=== PATIENT | male | born 1990 | race Caucasian/White ===

== ENCOUNTER → 2018-01-22 | Outpatient (CLI) | payer OTHER, SELFPAY ==
[2018-01-22 15:59] LABS: Absolute Lymphocyte Count 0.52 X10^3/ul (0.83-4.51); Absolute Neutrophil Count 3.8 X10^3/uL (2.0-7.7); Basophil# 0.03 X10^3/uL; Basophil% 0.6 % (0-1); Eosinophil# 0.11 X10^3/uL; Eosinophils% 2.1 % (0-5); Hematocrit 43.1 % (40-54); Hemoglobin 15.1 g/dl (13.0-16.5); Lymphocyte # 0.52 X10^3/ul (4.0); Lymphocyte % 10.1 % (19-41); Mean Corpuscular Hgb 32.4 pg (27.0-32.0); Mean Corpuscular Volume 92.5 fL (80-94); Mean Platelet Vol. 9.4 fl (6.2-12.0); Monocyte# 0.71 X10^3/uL; Monocyte% 13.8 % (0-10); Neutrophil # 3.78 X10^3/uL (2.7-7.7); Neutrophil % 73.2 % (47-70); Platelet Count 281 K/mm3 (150-450); RBC Distribution Width CV 11.9 % (11.6-14.6); RBC Distribution Width SD 39.4 fl (35.1-43.9); Red Blood Count 4.66 M/mm3 (4.6-6.2); White Blood Count 5.2 K/mm3 (4.4-11.0)
[2018-01-22 16:00] LABS: Differential Indicated SCAN CRITERIA MET; POSITIVE COUNT NO; POSITIVE DIFFERENTIAL YES; POSITIVE MORPHOLOGY NO
[2018-01-22 16:19] LABS: Differential Comment SCANNED
[2018-01-22 16:23] LABS: ALB/GLOB Ratio 1.1 RATIO (0.9-2.4); AST(SGOT) 26 U/L (15-37); Alanine Aminotransfer ALT/SGPT 42 U/L (16-61); Albumin, Serum 3.9 g/dL (3.2-5.0); Alkaline Phosphatase 47 U/L (45-117); Anion Gap 12 (5-15); BUN 7 mg/dL (7-18); BUN/Creat Ratio 7.9 RATIO (10-20); Calcium,Total 9.5 mg/dL (8.5-10.1); Chloride 105 mmol/L (98-107); Creatinine, Serum 0.89 mg/dL (0.70-1.30); EST Glomerular Filtration Rate 108 mL/min (>60); Est Glom Filt Rate - Afr Amer 131 mL/min (>60); Globulin 3.7 g/dL (2.2-4.2); Glucose 91 mg/dL (74-106); Protein, Total 7.6 g/dL (6.4-8.2); Sodium Level 142 mmol/L (136-145)
== END | disposition home or self-care (01) ==
LOC: MFPLAB 14:12
PROVIDERS: Family Provider Family Medicine; PCP Family Medicine; Visit Provider Family Medicine
DX: F41.8 Other specified anxiety disorders (principal); Z72.0 Tobacco use
CPT/HCPCS: 36415; 80053; 84443; 85025

== ENCOUNTER 2024-05-07 06:22 | Emergency (ER) | payer OTHER, SELFPAY ==
[2024-05-07 06:23] VITALS: BP 116/77; PULSE 77; RESP 18; TEMP 36.6; O2SAT 100; BMI 23.6
--- NOTE | 2024-05-07 06:30 | EKG12_ITS ---
Test Reason : Blood Pressure : / mmHG Vent. Rate : 064 BPM Atrial Rate : 064 BPM P-R Int : 172 ms QRS Dur : 094 ms QT Int : 426 ms P-R-T Axes : 059 088 040 degrees QTc Int : 439 ms Normal sinus rhythm with sinus arrhythmia Normal ECG Confirmed by Yfn Castillo ([id number]), editor managing director FRAN PICKERING ([id number]) on 05/09/2024 7:39:31 AM Referred By: Confirmed By:Yfn Castillo
--- NOTE | 2024-05-07 06:30 | CT_ITS ---
EXAM: CT HEAD WITHOUT INTRAVENOUS CONTRAST CLINICAL INDICATION: seizure, head injury TECHNIQUE: Multiple axial images were obtained of the head without intravenous contrast. This CT exam was performed using one or more of the following dose reduction techniques: automated exposure control, adjustment of the mA and/or kV according to patient size, and/or use of iterative reconstruction technique. RADIATION DOSE: CTDIvol = 44.99 mGy, DLP = 815.79 mGy-cm COMPARISON: No relevant prior studies available. FINDINGS: BRAIN AND EXTRA-AXIAL SPACES: Unremarkable. No intra- or extra-axial hemorrhage. No evidence of acute infarct. No intracranial mass or mass effect. There is preservation of the hung/white matter interface. Posterior fossa structures are unremarkable. Ventricles are appropriate for age. No hydrocephalus. Basal cisterns are patent. BONES/JOINTS: Unremarkable. No discrete lytic or blastic abnormalities. SINUSES: Unremarkable as visualized. Clear. MASTOID AIR CELLS: Unremarkable. Clear. ORBITS: Visualized globes, extraocular muscles, optic nerves and retrobulbar fat appear unremarkable. CT/Brain/Head without Contrast IMPRESSION: Negative head/brain CT without intravenous contrast. Electronically Signed: Antelmo Izaguirre MD at 7:08 EDT ,
[2024-05-07] MEDS: 0.9% Normal Saline (1000mL) 1,000 ML 150 ML IV (06:39)
[2024-05-07] MEDS: LORazepam 2 MG/ML Syringe 0.5 MG IV (06:40)
[2024-05-07] MEDS: Ondansetron 4 MG/2 ML Vial IV (06:40)
--- NOTE | 2024-05-07 06:42 | EDS_ITS ---
HPI <Dr. Coby Rivera MD - Last Filed: 05/07/24 07:04> History of Present Illness Chief Complaint: Seizure Informant: patient and spouse/S.O. Onset/Context/Timing Onset: Today Narrative Narrative: Patient presents with significant other after having a seizure this morning. Patient does not remember the event. Significant other states that he fell off the bed with seizure-like activity and struck the left side of his head against the nightstand. He did have what sounds like a postictal period. He did not bite his tongue or lose bladder control. Patient was initially very confused and did not know who his girlfriend or mother were. He tells me now that remembers going to work yesterday but he does not remember anything from last evening or overnight. Patient denies any history of seizures. He denies any new medications. He has been on sertraline clean for quite some time. He did take some NyQuil like medicine yesterday for cold-like symptoms. He denies drug or alcohol use. He is complaining of a headache and has been vomiting. [facility] <Dr. Coby Rivera MD - Last Filed: 05/07/24 07:04> [facility] Medical History (Updated 05/07/24 @ 07:[address] Lizandro Cantu MD) Anxiety Home Medications ?Medication ?Instructions ?Recorded ?Last Taken ?Type sertraline 100 mg tablet 150 mg PO DAILY 05/07/24 Unknown History Allergy/AdvReac Type Severity Reaction Status Date / Time amoxicillin Allergy Mild hives Verified 05/07/24 06:26 Social History Smoking Status: Current every day smoker tobacco type: e-cigarettes ROS <Dr. Coby Rivera MD - Last Filed: 05/07/24 07:04> ROS ED Constitutional Constitutional ED: Denies chills or fever(s) Eyes Eyes: Denies discharge from eye(s) ENT ENT ED: Denies discharge from eye(s), rhinorrhea or sore throat Cardiovascular Cardiovascular: Denies chest pain or palpitations Respiratory/Chest Respiratory/Chest: Denies cough or dyspnea Gastrointestinal Gastrointestinal: Reports nausea and vomiting; Denies abdominal pain or diarrhea Genitourinary Genitourinary ED: Denies dysuria Musculoskeletal Musculoskeletal: Denies back pain or extremity pain Integumentary Reports Abrasions; Denies rash Neurologic Neurologic: Reports headache(s); Denies weakness Psychiatric Psychiatric: Denies anxiety or depression Allergic/Immunologic Allergic/Immunologic ED: Denies lip swelling or urticaria EXAM <Dr. Coby Rivera MD - Last Filed: 05/07/24 07:04> Physical Exam Const Vital Signs: 05/07/24 06:23 Temperature 97.9 F Temperature Source Temporal Pulse Rate 77 Respiratory Rate 18 Blood Pressure 116/77 Blood Pressure Mean 90 Pulse Ox 100 Oxygen Delivery Method Room Air Positive well nourished and well developed General Appearance ED: well developed HEENT Reports moist mucous membranes HEENT Narrative: Erythema from trauma noted to the lateral portion of the left upper eyelid. No lacerations appreciated. Eyes EOMs intact bilaterally Chest Wall inspection of chest normal and palpation of chest normal Resp normal respiratory effort and clear to auscultation bilaterally Cardio regular rate and regular rhythm GI non-tender Auscultation: hypoactive bowel sounds Palpation: soft Extremity normal to inspection Neuro oriented x3 Neuro Narrative: No focal neurologic deficit. Psych mental status grossly normal <Dr. Lizandro Cantu MD - Last Filed: 05/07/24 07:59> Physical Exam Const Vital Signs: 05/07/24 06:23 Temperature 97.9 F Temperature Source Temporal Pulse Rate 77 Respiratory Rate 18 Blood Pressure 116/77 Blood Pressure Mean 90 Pulse Ox 100 Oxygen Delivery Method Room Air MDM <Dr. Coby Rivera MD - Last Filed: 05/07/24 07:04> MDM MDM Narrative Medical decision making narrative: Patient placed on finish machine tender. Patient given 0.5 mg of Ativan along with Zofran to help with nausea. Labwork obtained to evaluate for leukocytosis, anemia, and electrolyte derangement. EKG obtained to evaluate for cardiac arrhythmia/ischemia. CT scan of the head obtained to evaluate for any acute intracranial injury or mass. History & Record Review Discussion w/independent historian: Patient Lab Data Attestation: I reviewed the patient's lab results. Labs: Laboratory Results - last 24 hr 05/07/24 06:40 WBC 9.5 RBC 4.57 L Hgb 13.8 Hct 40.5 MCV 88.6 MCH 30.2 MCHC 34.1 RDW Std Deviation 40.4 RDW Coeff of Zach 12.5 Plt Count 188 MPV 9.2 Immature Gran % (Auto) 0.400 Neut % (Auto) 77.1 H Lymph % (Auto) 12.0 L [place] % (Auto) 5.2 Eos % (Auto) 4.7 Baso % (Auto) 0.6 Absolute Neuts (auto) 7.3 Absolute Lymphs (auto) 1.14 Nucleated RBC % 0 Sodium 140 Potassium 3.7 Chloride 108 H Carbon Dioxide 23.0 Anion Gap 9 BUN 14 Creatinine 1.19 Estim Creat Clear Calc 81.78 Est GFR (MDRD) Af Amer 90 Est GFR (MDRD) Non-Af 74 BUN/Creatinine Ratio 11.8 Glucose 205 H Calcium 9.4 Total Bilirubin 0.50 Direct Bilirubin 0.15 AST 17 ALT 29 Alkaline Phosphatase 47 Total Protein 7.8 Albumin 4.0 Globulin 3.8 Radiography Diagnostic Testing: Clinical Impression(s) from Imaging Studies Brain CT 05/07/24 06:30 IMPRESSION: Negative head/brain CT without intravenous contrast. Electronically Signed: Antelmo Izaguirre MD at 7:08 EDT , Treatment and Re-Evaluation :: Patient has been medicated. CBC has returned and is unremarkable. CT scan of the head per my interpretation reveals no obvious gross abnormalities. Official read is pending at this time. Patient be signed out to oncoming physician for monitoring, formal CT read, and the remainder of the labs. I anticipate patient able to be discharged with outpatient neurology follow-up. <Dr. Lizandro Cantu MD - Last Filed: 05/07/24 07:59> [facility] Lab Data Lab results narrative: CBC is normal. Electrolyte is remarkable for glucose of 205. CO2 and anion gap are normal. Liver enzymes are unremarkable. Patient does have a prior history of heavy alcohol use. Not had alcoholic beverage in 2 years. Labs: Laboratory Results - last 24 hr 05/07/24 06:40 WBC 9.5 RBC 4.57 L Hgb 13.8 Hct 40.5 MCV 88.6 MCH 30.2 MCHC 34.1 RDW Std Deviation 40.4 RDW Coeff of Zach 12.5 Plt Count 188 MPV 9.2 Immature Gran % (Auto) 0.400 Neut % (Auto) 77.1 H Lymph % (Auto) 12.0 L [place] % (Auto) 5.2 Eos % (Auto) 4.7 Baso % (Auto) 0.6 Absolute Neuts (auto) 7.3 Absolute Lymphs (auto) 1.14 Nucleated RBC % 0 Sodium 140 Potassium 3.7 Chloride 108 H Carbon Dioxide 23.0 Anion Gap 9 BUN 14 Creatinine 1.19 Estim Creat Clear Calc 81.78 Est GFR (MDRD) Af Amer 90 Est GFR (MDRD) Non-Af 74 BUN/Creatinine Ratio 11.8 Glucose 205 H Calcium 9.4 Total Bilirubin 0.50 Direct Bilirubin 0.15 AST 17 ALT 29 Alkaline Phosphatase 47 Total Protein 7.8 Albumin 4.0 Globulin 3.8 Radiography Diagnostic Testing: Clinical Impression(s) from Imaging Studies Brain CT 05/07/24 06:30 IMPRESSION: Negative head/brain CT without intravenous contrast. Electronically Signed: Antelmo Izaguirre MD at 7:08 EDT , The CT results were reviewed. I did independently review the CAT scan and I did not see any obvious intracranial abnormality or skull fracture. Treatment and Re-Evaluation Comments:: Case was turned over to me at 0701 to make disposition once all laboratory studies and CAT scan results were available. Patient and family were made aware of elevated blood sugar and need to follow-up with Dr. Hammond. He was referred to neurology for outpatient workup. He was told specific no driving, no use of machinery, no heights, no swimming in white, pond pool etc. No doing work at heights. Discharge Plan Triage Chief Complaint: Seizure ED Provider: Coby Rivera Dx/Rx/DC Orders Clinical Impression: New onset seizure, Nondiabetic hyperglycemia, History of alcoholism Instructions: ED Seizure New [facility] Adult, ED Hyperglycemia New Poss Diabetes Prescriptions: No Action sertraline 100 mg tablet 150 mg PO DAILY Primary Care Provider: Jesus uClver Referrals: Leroy Simon MD [Non-Staff -Ordering Privileges] - 5-7 Days Jesus Culver MD [[facility]] - 1 Week Activity Restrictions/Additional Instructions: No driving, no use motorized machinery, no working at heights, no swimming in white, pond pool etc., no driving either until cleared by neurology You need to follow-up with Dr. Sher because your blood sugar was greater than 200. Print Language: Ukrainian Disposition Disposition: Home, Self Care
[2024-05-07 06:50] LABS: Absolute Lymphocyte Count 1.14 X10^3/uL (0.83-4.51); Absolute Neutrophil Count 7.3 X10^3/uL (2.0-7.7); Basophil# 0.06 X10^3/uL; Basophil% 0.6 % (0-1); Eosinophil# 0.45 X10^3/uL; Eosinophils% 4.7 % (0-5); Hematocrit 40.5 % (40-54); Hemoglobin 13.8 g/dL (13.0-16.5); Lymphocyte # 1.14 X10^3/ul (0.83-4.51); Mean Corp Hgb Conc 34.1 g/dL (32-36); Mean Corpuscular Hgb 30.2 pg (27.0-32.0); Mean Corpuscular Volume 88.6 fL (80-94); Mean Platelet Vol. 9.2 fl (6.2-12.0); Monocyte# 0.49 X10^3/uL; Monocyte% 5.2 % (0-10); NRBC Flagged by Analyzer 0 % (0-5); Neutrophil # 7.32 X10^3/uL (2.7-7.7); Neutrophil % 77.1 % (47-70); Platelet Count 188 K/mm3 (150-450); RBC Distribution Width CV 12.5 % (11.6-14.6); RBC Distribution Width SD 40.4 fl (35.1-43.9); Red Blood Count 4.57 M/mm3 (4.6-6.2); White Blood Count 9.5 K/mm3 (4.4-11.0)
[2024-05-07 07:06] LABS: AST(SGOT) 17 U/L (15-37); Alanine Aminotransfer ALT/SGPT 29 U/L (16-61); Alkaline Phosphatase 47 U/L (45-117); Anion Gap 9 (5-15); BUN 14 mg/dL (7-18); BUN/Creat Ratio 11.8 RATIO (10-20); Bilirubin, Direct 0.15 mg/dL (0.00-0.30); Calcium,Total 9.4 mg/dL (8.5-10.1); Chloride 108 mmol/L (98-107); Creatinine, Serum 1.19 mg/dL (0.70-1.30); EST Glomerular Filtration Rate 74 mL/min (>60); Est Glom Filt Rate - Afr Amer 90 mL/min (>60); Estimated Creatinine Clearance 81.78 ml/min; Globulin 3.8 g/dL (2.2-4.2); Glucose 205 mg/dL (74-106); Potassium 3.7 mmol/L (3.5-5.1); Protein, Total 7.8 g/dL (6.4-8.2); Sodium Level 140 mmol/L (136-145)
[2024-05-07 08:24] VITALS: BP 111/70; PULSE 75; RESP 21; TEMP 36.6; O2SAT 95
== END 2024-05-07 08:27 | disposition home or self-care (01) ==
PROVIDERS: Emergency Provider Emergency Medicine; PCP Family Medicine; Visit Provider Emergency Medicine
DX: R56.9 Unspecified convulsions (principal); F10.21 Alcohol dependence, in remission; R73.9 Hyperglycemia, unspecified; S00.202A Unspecified superficial injury of left eyelid and periocular area, initial encounter; W06.XXXA Fall from bed, initial encounter; R41.0 Disorientation, unspecified; R51.9 Headache, unspecified; R11.2 Nausea with vomiting, unspecified; F17.290 Nicotine dependence, other tobacco product, uncomplicated
CPT/HCPCS: 70450; 80048; 80076; 85025; 93005; 99283; J2405

== ENCOUNTER → 2024-05-08 | Outpatient (CLI) | payer OTHER, SELFPAY ==
[2024-05-08 15:44] LABS: AST(SGOT) 24 U/L (15-37); Alanine Aminotransfer ALT/SGPT 31 U/L (16-61); Albumin, Serum 3.8 g/dL (3.2-5.0); Alkaline Phosphatase 39 U/L (45-117); Anion Gap 9 (5-15); BUN 19 mg/dL (7-18); BUN/Creat Ratio 19.5 RATIO (10-20); Calcium,Total 9.2 mg/dL (8.5-10.1); Chloride 108 mmol/L (98-107); Creatinine, Serum 0.98 mg/dL (0.70-1.30); EST Glomerular Filtration Rate 93 mL/min (>60); Est Glom Filt Rate - Afr Amer 113 mL/min (>60); Glucose 100 mg/dL (74-106); Potassium 3.8 mmol/L (3.5-5.1); Protein, Total 7.8 g/dL (6.4-8.2); Sodium Level 140 mmol/L (136-145)
[2024-05-08 15:50] LABS: Hemoglobin A1c 5.2 % (3.8-5.6)
== END | disposition home or self-care (01) ==
LOC: MFPLAB 11:44
PROVIDERS: PCP Family Medicine; Visit Provider Family Medicine
DX: R73.09 Other abnormal glucose (principal)
CPT/HCPCS: 36415; 80053; 83036

== ENCOUNTER → 2024-05-27 | Outpatient (CLI) | payer OTHER, SELFPAY ==
--- NOTE | 2024-05-27 08:09 | MRI_ITS ---
STUDY: MRI BRAIN WITH AND WITHOUT CONTRAST REASON FOR EXAM: Male, 33 years old. SEIZURE TECHNIQUE: Standardized multiplanar fat and water weighted pulse sequences were obtained. IV 14 cc clariscan was administered for the contrast portion of the examination. COMPARISON: None. FINDINGS: Normal size of the ventricles and extra-axial spaces for the patient''s age. Normal white matter tracts of the supratentorial brain. There is no evidence for recent intracranial ischemia or other cause of cytotoxic edema on diffusion weighted imaging (DWI). Normal T2* images of the brain without demonstrated susceptibility artifact. There is no demonstrated hemosiderin stain. Thin section coronal T2-weighted images through the temporal lobes demonstrate no evidence of hippocampal atrophy or hyperintensity to suggest mesial temporal sclerosis. Normal bilateral basal ganglia. Normal thalami. There is no extra-axial fluid accumulation. Normal flow voids within the major intracranial circulation suggesting patency by spin echo criteria. Normal venous enhancement. There is no enhancing intra-axial or extra-axial abnormality. Normal sella turcica, pituitary gland, infundibular stalk, optic chiasm and hypothalamus. Normal tectal plate and pineal gland. Normal midbrain, mckay and medulla. Normal cerebellum. Normal basal cisterns. Normal bilateral temporal bones. Normal bilateral internal auditory canals. No demonstrated orbital abnormality, within the constraints of a routine brain study. Normal visualized paranasal sinuses. Normal calvarium and skull base. Normal visualized soft tissue structures. Normal visualized upper cervical spine. MRI/Brain W/WO Contrast IMPRESSION: Normal unenhanced and enhanced MRI of the brain. Electronically Signed: Tenzin Leroy MD at 13:13 EDT ,
== END | disposition home or self-care (01) ==
LOC: MRI 08:00
PROVIDERS: PCP Family Medicine; Referring Provider Family Medicine; Visit Provider Family Medicine
DX: R56.9 Unspecified convulsions (principal)
CPT/HCPCS: 70553; A9575

== ENCOUNTER → 2024-06-05 | Outpatient (CLI) | payer OTHER, SELFPAY | END | disposition home or self-care (01) | PROVIDERS: PCP Family Medicine; Referring Provider Family Medicine; Visit Provider Family Medicine | DX: R56.9 Unspecified convulsions (principal) | CPT/HCPCS: 95819 ==

== ENCOUNTER 2024-06-21 11:19 | Emergency (ER) | payer OTHER, SELFPAY ==
[2024-06-21] VITALS (8 sets, daily range): BP systolic 90–103; BP diastolic 40–65; PULSE 51–78; RESP 14–18; TEMP 36.1–36.4; O2SAT 96–100; BMI 23.7
--- NOTE | 2024-06-21 11:40 | EX.ED.DYSGE1 ---
HPI <VIDA Sapp - Last Filed: 06/21/24 20:40> History of Present Illness Chief Complaint: Seizure Narrative Narrative: 33-year-old male with history of alcohol abuse, anxiety depression, presenting to the emerged department for shaking in his sleep, headaches. Patient states he has not had alcohol in greater than 2 years. Per the girlfriend who lives with him, the patient was having what she describes as convulsions, however the patient was alert and able to answer the girlfriend. Per the girlfriend, the patient had 3 of these episodes throughout the morning. Patient does smoke marijuana daily, however did not smoke anything this morning. Patient states he has pain to both of his lutheran areas, feels like pressure. He states he feels nauseated and is here for evaluation. PFS <VIDA Sapp - Last Filed: 06/21/24 20:40> [facility] Medical History Anxiety Home Medications ?Medication ?Instructions ?Recorded ?Last Taken ?Type sertraline 100 mg tablet 150 mg PO DAILY 05/07/24 Unknown History Allergy/AdvReac Type Severity Reaction Status Date / Time amoxicillin Allergy Mild hives Verified 06/21/24 11:23 Social History Smoking Status: Current every day smoker tobacco type: e-cigarettes ROS <VIDA Sapp - Last Filed: 06/21/24 20:40> ROS ED ROS Narrative Constitutional: Negative for fever, chills, weight loss, weakness. Positive for diaphoresis Eyes: Negative for vision loss, vision change, double vision ENT: Negative for any sore throat, ear pain, congestion Cardiovascular: Negative for any chest pain, tightness, palpitations Respiratory: Negative for any cough, sputum production, hemoptysis, dyspnea, dyspnea on exertion, orthopnea Gastrointestinal: Negative for any abdominal pain, diarrhea, constipation, blood in stool, blood in vomit. Positive for nausea and vomiting : Negative for any urinary frequency, dysuria, retention, blood in urine Muscle skeletal: Negative for any neck pain, back pain Neurological: Negative for any syncope, dizziness. Positive for headache, Skin: Negative for any rashes, itching, abrasions, lacerations Psychiatric: Negative for any depression, anxiety, stress, suicidal ideation, homicidal ideation Hematologic: Negative for any excessive bruising, easy bleeding EXAM <VIDA Sapp - Last Filed: 06/21/24 20:40> Physical Exam Narrative Exam Narrative: Vital signs reviewed. HEET: Head normocephalic atraumatic, TMs clear bilaterally. Posterior pharynx is clear, moist mucous membranes. Nares clear bilaterally. Pupils are equal round reactive to light. Negative for hemotympanum or septal hematoma. Neck: Supple with no lymphadenopathy or tenderness. No signs of meningismus. Cardiac: Regular rate and rhythm no murmurs gallops or rubs, equal peripheral pulses bilaterally. Respiratory: Lungs clear to auscultation bilaterally. No chest tenderness. Abdomen: Soft, nontender, nondistended. No abdominal bruit or pulsatile masses. No hepatosplenomegaly Extremities: No peripheral edema, no signs of gross trauma or deformity. Active full range of motion of all extremities. Neuro: Cranial nerves II through XII intact, no focal neurological deficits. NIH stroke scale 0. Skin: Clean dry and intact with no rash, purpura, petechiae, vesicles or pustules. Backs/flank: No CVA tenderness, no midline spinal tenderness, no deformity. Psych: Normal mood and affect. No SI, HI or acute psychosis. Const Vital Signs: 06/21/24 11:20 06/21/24 13:20 06/21/24 15:00 Temperature 97.0 F L Temperature Source Temporal Pulse Rate 55 L 73 Respiratory Rate 16 18 Blood Pressure 101/65 94/42 L 98/40 L Blood Pressure Mean 77 59 59 Pulse Ox 100 98 Oxygen Delivery Method Room Air 06/21/24 17:00 06/21/24 18:00 06/21/24 20:00 Temperature Temperature Source Pulse Rate 51 L 67 62 Respiratory Rate 18 14 16 Blood Pressure 90/44 L 103/54 L 101/49 L Blood Pressure Mean 59 70 66 Pulse Ox 97 98 Oxygen Delivery Method Room Air Room Air Room Air 06/21/24 20:07 Temperature 97.6 F L Temperature Source Pulse Rate 78 Respiratory Rate 16 Blood Pressure 96/50 L Blood Pressure Mean 65 Pulse Ox 96 Oxygen Delivery Method <Dr. Leroy Stacy DO - Last Filed: 06/21/24 16:33> Physical Exam Const Vital Signs: 06/21/24 11:20 06/21/24 13:20 06/21/24 15:00 Temperature 97.0 F L Temperature Source Temporal Pulse Rate 55 L 73 Respiratory Rate 16 18 Blood Pressure 101/65 94/42 L 98/40 L Blood Pressure Mean 77 59 59 Pulse Ox 100 98 Oxygen Delivery Method Room Air 06/21/24 17:00 06/21/24 18:00 06/21/24 20:00 Temperature Temperature Source Pulse Rate 51 L 67 62 Respiratory Rate 18 14 16 Blood Pressure 90/44 L 103/54 L 101/49 L Blood Pressure Mean 59 70 66 Pulse Ox 97 98 Oxygen Delivery Method Room Air Room Air Room Air 06/21/24 20:07 Temperature 97.6 F L Temperature Source Pulse Rate 78 Respiratory Rate 16 Blood Pressure 96/50 L Blood Pressure Mean 65 Pulse Ox 96 Oxygen Delivery Method [facility] <VIDA Sapp - Last Filed: 06/21/24 20:40> [facility] Lab Data Labs: Laboratory Results - last 24 hr 06/21/24 06/21/24 06/21/24 11:47 12:50 18:42 WBC 7.7 RBC 4.55 L Hgb 14.0 Hct 40.9 MCV 89.9 MCH 30.8 MCHC 34.2 RDW Std Deviation 41.1 RDW Coeff of Zach 12.5 Plt Count 195 MPV 9.0 Immature Gran % (Auto) 1.400 H Neut % (Auto) 84.8 H Lymph % (Auto) 6.6 L [place] % (Auto) 4.1 Eos % (Auto) 2.5 Baso % (Auto) 0.6 Absolute Neuts (auto) 6.5 Absolute Lymphs (auto) 0.51 L Nucleated RBC % 0 Sodium 143 Potassium 4.1 Chloride 111 H Carbon Dioxide 25.0 Anion Gap 7 BUN 19 H Creatinine 1.10 Estim Creat Clear Calc 88.47 Est GFR (MDRD) Af Amer 98 Est GFR (MDRD) Non-Af 81 BUN/Creatinine Ratio 17.3 Glucose 93 Calcium 9.3 Total Bilirubin 0.50 AST 20 ALT 29 Alkaline Phosphatase 41 L Total Protein 7.8 Albumin 4.0 Globulin 3.8 Albumin/Globulin Ratio 1.1 Urine Color Yellow Urine Clarity Sl. Cloudy Urine pH 6.0 Ur Specific [place] 1.020 Urine Protein 30 H Urine Glucose (UA) Normal Urine Ketones 15 H Urine Occult Blood Negative Urine Nitrite Negative Urine Bilirubin Negative Urine Urobilinogen Normal Ur Leukocyte Esterase Negative Urine RBC 0 SEEN Urine WBC 0 SEEN Ur Squamous Epith Cells 0 SEEN Amorphous Sediment 1+ Urine Bacteria 1+ Urine Mucus 1+ Urine Opiates Screen NEGATIVE Urine Methadone Screen NEGATIVE Ur Barbiturates Screen NEGATIVE Ur Phencyclidine Scrn NEGATIVE Ur Amphetamines Screen NEGATIVE MDMA (Ecstasy) Screen NEGATIVE U Benzodiazepines Scrn NEGATIVE Urine Cocaine Screen NEGATIVE U Cannabinoids Screen POSITIVE H Ur Drug Screen Comment Ethyl Alcohol < 3.0 Radiography Diagnostic Testing: Clinical Impression(s) from Imaging Studies Brain CT 06/21/24 12:04 IMPRESSION: No acute intracranial process. Electronically Signed: Petra Delcid MD at 13:36 EDT , Treatment and Re-Evaluation :: Differential diagnosis includes however is not limited to: Seizure activity, sleep disturbance, migraine headache, drug abuse Patient appears to be in no obvious respiratory distress, vital signs are stable, patient is nontoxic-appearing. Presenting to the emerged part with complaints of headache, convulsions x 3 while he was in his sleep. I do not believe this was a seizure secondary to the patient being alert and answering questions while this was happening this morning. I am getting the information from the girlfriend who witnessed this. Patient this time has a normal neurological exam. Patient did have a full neurological exam in April 2024 for similar issues. This was negative, the patient was cleared for driving. Patient dates complains of headache and nausea. Patient will be given a migraine-like cocktail, secondary to a normal neurological exam, do not believe that CT scan is indicated at this time. Patient will be given Reglan, Toradol, Benadryl. IV fluids will be given. Patient will be reevaluated. We were called into the room, patient having a grand mal seizure, this lasted around 1 minute. Patient is having extended postictal state, he is fighting the nurses, patient was given originally 2 mg of Ativan, patient is now given 1 mg/kg of ketamine. Patient's moving all extremities, he was incontinent of bladder. CT scan of the brain will now be ordered secondary to the change in mental status and seizure. Per the girlfriend, the patient is never had a seizure like this. After the ketamine, patient is now resting. Patient's vital signs remained stable. Patient is no longer postictal. 2:15 PM, patient was reevaluated, patient does open his eyes to verbal stimuli however goes immediately back to sleep. Per the girlfriend, nursing staff patient has no more seizure like activity. Patient continue to be monitored. The question at this time is of the patient will be able to stay here to be transferred to another facility. Patient continued to be reevaluated. 3:56 PM, patient remained stable, patient is alert, he is still sleepy however wakes up and does talk. I spoke with the hospitalist, they would feel more comfortable the patient was transferred where they have neuro in house. I spoke with the patient, the patient's family, they are agreeable. The plan will be to transfer the patient to a [facility] facility. Patient remained stable. 7:30 PM, patient is alert, still slightly sleepy however overall well. Patient is drinking fluids. Patient now has a bed at [facility]. Patient be stable for transport. <Dr. Leroy Stacy, DO - Last Filed: 06/21/24 16:33> [facility] Narrative Medical decision making narrative: I have personally performed a face to face assessment of the patient and have reviewed the ANN MARIE Note. I performed a substantive portion of the visit including all aspects of the following. My burrell findings include: History: Patient presents with possible seizure that occurred earlier this morning. Patient significant other stated that he was having shaking episodes while he was sleeping. She stated that patient was talking during these seizures. She states that the patient had a generalized seizure 1 month ago and was seen by neurology for that. Patient was not started on any antiepileptics at that time. Exam: Vital signs are stable. Patient is afebrile. Patient is in no acute distress. On my examination, patient was actively having a generalized tonic-clonic seizure. This lasted approximately 1 minute. Patient was postictal after this. Oral mucosa is pink and moist. There is no biting of the tongue. There is no bleeding noted. Neck is supple. Trachea is midline. Heart was regular rate and rhythm. Lungs are clear and equal bilaterally. Abdomen is soft. Bowel sounds are normal. There is no tenderness. Patient is moving all extremities. Strength is 5/5 bilaterally in upper and lower extremities. There are no apparent sensory deficits. Medical Decision Making: Differential diagnosis includes intracranial bleeding, intracranial mass, electrolyte abnormality, infection, and anemia. CT scan of the brain will be obtained to assess for intracranial bleeding and intracranial mass. Comprehensive metabolic profile will be obtained to assess for hepatic function, renal function, and electrolyte abnormality. CT scan of the brain will be obtained to her report intracranial bleeding and intracranial mass Patient was given 1 mg of Ativan. Patient was given Reglan, Benadryl, and Toradol. Patient continued to be combative while he was postictal. Patient was given a repeat dose of Ativan. Patient had no improvement with this. Patient was given a dose of ketamine. CBC was reviewed and was within normal limits. Comprehensive metabolic profile was reviewed and was within normal limits. Serum alcohol level was reviewed and was less than 3.0. CT scan of the brain was obtained. There is no acute intracranial abnormality. This was interpreted by the radiologist and was also independently reviewed by myself. Patient was sleeping on reevaluation but awakened to tactile stimulation. Patient was advised of his findings. Case was discussed with the hospitalist for admission. He recommended transferring the patient to a facility that had inpatient neurology coverage. Lab Data Labs: Laboratory Results - last 24 hr 06/21/24 06/21/24 06/21/24 11:47 12:50 18:42 WBC 7.7 RBC 4.55 L Hgb 14.0 Hct 40.9 MCV 89.9 MCH 30.8 MCHC 34.2 RDW Std Deviation 41.1 RDW Coeff of Zach 12.5 Plt Count 195 MPV 9.0 Immature Gran % (Auto) 1.400 H Neut % (Auto) 84.8 H Lymph % (Auto) 6.6 L [place] % (Auto) 4.1 Eos % (Auto) 2.5 Baso % (Auto) 0.6 Absolute Neuts (auto) 6.5 Absolute Lymphs (auto) 0.51 L Nucleated RBC % 0 Sodium 143 Potassium 4.1 Chloride 111 H Carbon Dioxide 25.0 Anion Gap 7 BUN 19 H Creatinine 1.10 Estim Creat Clear Calc 88.47 Est GFR (MDRD) Af Amer 98 Est GFR (MDRD) Non-Af 81 BUN/Creatinine Ratio 17.3 Glucose 93 Calcium 9.3 Total Bilirubin 0.50 AST 20 ALT 29 Alkaline Phosphatase 41 L Total Protein 7.8 Albumin 4.0 Globulin 3.8 Albumin/Globulin Ratio 1.1 Urine Color Yellow Urine Clarity Sl. Cloudy Urine pH 6.0 Ur Specific [place] 1.020 Urine Protein 30 H Urine Glucose (UA) Normal Urine Ketones 15 H Urine Occult Blood Negative Urine Nitrite Negative Urine Bilirubin Negative Urine Urobilinogen Normal Ur Leukocyte Esterase Negative Urine RBC 0 SEEN Urine WBC 0 SEEN Ur Squamous Epith Cells 0 SEEN Amorphous Sediment 1+ Urine Bacteria 1+ Urine Mucus 1+ Urine Opiates Screen NEGATIVE Urine Methadone Screen NEGATIVE Ur Barbiturates Screen NEGATIVE Ur Phencyclidine Scrn NEGATIVE Ur Amphetamines Screen NEGATIVE MDMA (Ecstasy) Screen NEGATIVE U Benzodiazepines Scrn NEGATIVE Urine Cocaine Screen NEGATIVE U Cannabinoids Screen POSITIVE H Ur Drug Screen Comment Ethyl Alcohol < 3.0 Radiography Diagnostic Testing: Clinical Impression(s) from Imaging Studies Brain CT 06/21/24 12:04 IMPRESSION: No acute intracranial process. Electronically Signed: Petra Delcid MD at 13:36 EDT , Discharge Plan Triage Chief Complaint: Seizure ED Midlevel Provider: Rosas Ball ED Provider: Leroy Stacy Dx/Rx/DC Orders Instructions: ED Seizure, Recurrent (Adult) Prescriptions: No Action sertraline 100 mg tablet 150 mg PO DAILY Primary Care Provider: Jesus Culver Referrals: Jesus Culver MD [Primary Care Provider] - Print Language: Faroese Disposition Disposition: Acute Care Hospital Discharge Location: [facility]
[2024-06-21] MEDS: 0.9% Normal Saline (1000mL) 1,000 ML 999 ML IV ×2 (11:47→17:05)
[2024-06-21] MEDS: Ketorolac 15 MG/ML Vial IV (11:49)
[2024-06-21] MEDS: DiphenhydrAMINE 50 MG/ML Syringe 25 MG IV (11:49)
[2024-06-21] MEDS: Metoclopramide 10 MG/2 ML Vial IV (11:49)
[2024-06-21 11:57] LABS: Absolute Lymphocyte Count 0.51 X10^3/uL (0.83-4.51); Absolute Neutrophil Count 6.5 X10^3/uL (2.0-7.7); Basophil# 0.05 X10^3/uL; Basophil% 0.6 % (0-1); Eosinophil# 0.19 X10^3/uL; Eosinophils% 2.5 % (0-5); Hematocrit 40.9 % (40-54); Lymphocyte # 0.51 X10^3/ul (0.83-4.51); Lymphocyte % 6.6 % (19-41); Mean Corp Hgb Conc 34.2 g/dL (32-36); Mean Corpuscular Hgb 30.8 pg (27.0-32.0); Mean Corpuscular Volume 89.9 fL (80-94); Monocyte# 0.32 X10^3/uL; Monocyte% 4.1 % (0-10); NRBC Flagged by Analyzer 0 % (0-5); Neutrophil # 6.54 X10^3/uL (2.7-7.7); Neutrophil % 84.8 % (47-70); POSITIVE DIFFERENTIAL YES; Platelet Count 195 K/mm3 (150-450); RBC Distribution Width CV 12.5 % (11.6-14.6); RBC Distribution Width SD 41.1 fl (35.1-43.9); Red Blood Count 4.55 M/mm3 (4.6-6.2); White Blood Count 7.7 K/mm3 (4.4-11.0)
--- NOTE | 2024-06-21 12:04 | CT_ITS ---
INDICATION: seizure EXAMINATION: CT BRAIN - CT Head or Brain W/O Contrast Injection TECHNIQUE: Multiple axial images were obtained of the head without intravenous contrast. The protocol utilizes one or more of the following dose reduction techniques: automated exposure control, adjustment of mA and/or kV according to patient size,and/or use of iterative reconstruction technique. IV Contrast dosage and agent: None. RADIATION DOSAGE (If Supplied By Facility): CTDIvol = ( 44.99 ) mGy, DLP = ( 812.98 ) mGycm COMPARISON: May 07, 2024 FINDINGS: BRAIN PARENCHYMA: No intra- or extra-axial hemorrhage. No evidence of acute infarct. No intracranial mass or mass effect. There is preservation of the hung/white matter interface. Posterior fossa structures are unremarkable. CSF SPACES: Appropriate for age. No hydrocephalus. Basal cisterns are patent. CALVARIUM, SKULL BASE, PARANASAL SINUSES AND MASTOID AIR CELLS: Clear. No discrete lytic or blastic abnormalities. ORBITS: Both globes, extraocular muscles, optic nerves and retrobulbar fat appear unremarkable. ASPECTS Score for Acute Strokes: 10 CT/Brain/Head without Contrast IMPRESSION: No acute intracranial process. Electronically Signed: Petra Delcid MD at 13:36 EDT ,
[2024-06-21] MEDS: LORazepam 2 MG/ML Syringe 1 MG IV ×2 (12:06→12:27)
[2024-06-21 12:15] LABS: ALB/GLOB Ratio 1.1 RATIO (0.9-2.4); AST(SGOT) 20 U/L (15-37); Alanine Aminotransfer ALT/SGPT 29 U/L (16-61); Alkaline Phosphatase 41 U/L (45-117); Anion Gap 7 (5-15); BUN 19 mg/dL (7-18); BUN/Creat Ratio 17.3 RATIO (10-20); Calcium,Total 9.3 mg/dL (8.5-10.1); Chloride 111 mmol/L (98-107); EST Glomerular Filtration Rate 81 mL/min (>60); Est Glom Filt Rate - Afr Amer 98 mL/min (>60); Estimated Creatinine Clearance 88.47 ml/min; Globulin 3.8 g/dL (2.2-4.2); Glucose 93 mg/dL (74-106); Potassium 4.1 mmol/L (3.5-5.1); Protein, Total 7.8 g/dL (6.4-8.2); Sodium Level 143 mmol/L (136-145)
[2024-06-21] MEDS: Ketamine HCl 500 MG/5 ML Vial 66 MG IV (12:25)
[2024-06-21 13:33] LABS: Alcohol, Blood (Medical)-Serum < 3.0 mg/dL
[2024-06-21 18:50] LABS: Red Blood Cells-Urine 0 SEEN /hpf (0-5); Squamous Epithelial Cells - UA 0 SEEN /hpf (0-5); White Blood Cells 0 SEEN /hpf (0-5)
[2024-06-21 18:52] LABS: Color, Urine Yellow (Yellow); Glucose, Dipstick Normal (Normal); Ketone-Dipstick 15 mg/dl (Negative); Leukocyte Esterase-Dipstick Negative /ul (Negative); Nitrite-Dipstick Negative (Negative); Occult Blood-Urine Negative /ul (Negative); Protein-Dipstick 30 mg/dl (Negative); Urine Bilirubin Dipstick Negative (Negative); Urine Clarity Sl. Cloudy (Clear); Urine Urobilinogen Normal (Normal)
[2024-06-21 19:05] LABS: Amorphous Sediment 1+; Bacteria 1+ /hpf (None Seen); Mucous, Urine 1+ /hpf (<or=2+)
--- NOTE | 2024-06-21 19:12 | NURSING ---
ACCEPTED TO [facility] TO ROOM [address] IS [phone]
[2024-06-21 19:18] LABS: Amphetamine Urine VISTA NEGATIVE (<1000 ng/mL); Barbiturate Urine VISTA NEGATIVE (< 200 ng/mL); Benzodiazepine Urine VISTA NEGATIVE (< 200 ng/mL); Cocaine Urine VISTA NEGATIVE (< 300 ng/mL); Ecstacy Urine VISTA NEGATIVE (< 500 ng/mL); Methadone Urine VISTA NEGATIVE (< 300 ng/mL); PCP Urine VISTA NEGATIVE (< 25 ng/mL); THC Urine VISTA POSITIVE (< 50 ng/mL); Vista UDS pH Range 6
--- NOTE | 2024-06-21 21:37 | ED.RN ---
N2N report called to Hugh, to nurse Lalitha. All questions answered at this time.
== END 2024-06-21 22:58 | disposition short-term general hospital (02) ==
PROVIDERS: Nurse Practitioner; Emergency Provider Emergency Medicine; PCP Family Medicine; Visit Provider Emergency Medicine
DX: R56.9 Unspecified convulsions (principal); F17.290 Nicotine dependence, other tobacco product, uncomplicated; R51.9 Headache, unspecified; F41.9 Anxiety disorder, unspecified; F32.A Depression, unspecified; F10.10 Alcohol abuse, uncomplicated
CPT/HCPCS: 70450; 80053; 80307; 81001; 82077; 85025; 96361; 96374; 96375; 99285; J7030; A4216

== ENCOUNTER 2024-09-13 12:02 | Emergency (ER) | payer OTHER, SELFPAY ==
[2024-09-13 12:02] VITALS: BP 130/78; PULSE 85; RESP 26; TEMP 36.6; O2SAT 93; BMI 32.1
[2024-09-13 12:28] VITALS: BP 102/60; PULSE 79; RESP 19; O2SAT 95
--- NOTE | 2024-09-13 12:37 | EDS_ITS ---
HPI History of Present Illness Chief Complaint: Seizure Informant: patient and spouse/S.O. Narrative Narrative: 33-year-old male presented to the emergency room with reported seizures. Patient has a history of epilepsy. About 2 weeks ago he followed up with neur ology ([facility] Dr. Bairon Naylor). His Trileptal was increased to 600 mg twice daily from 450 mg twice daily. Significant other states that this morning at around 640 he began to have a seizure. He has had a total of 4 seizures. It is not clear if the patient achieved neurologic baseline in between the episodes as he typically sleeps the rest of the day. She states that she used the midazolam nasal spray that she was given to help terminate the seizure. She notes that the patient bit the right side of his tongue. Patient has been doing well over the past couple weeks. No reported illnesses. Patient is currently postictal and cannot provide much information or participate in the exam readily [facility] Medical History Seizure Anxiety Home Medications ?Medication ?Instructions ?Recorded ?Last Taken ?Type sertraline 100 mg tablet 150 mg PO DAILY 05/07/24 Unknown History midazolam 5 mg/spray (0.1 mL) intranasal 09/13/24 Unknown History nasal spray (Nayzilam) oxcarbazepine 300 mg tablet 600 mg PO BID 09/13/24 Unknown History Allergy/AdvReac Type Severity Reaction Status Date / Time amoxicillin Allergy Mild hives Verified 06/21/24 11:23 Social History Smoking Status: Current every day smoker tobacco type: e-cigarettes ROS ROS ED Review of Systems ROS Unobtainable: due to mental status EXAM Physical Exam Const Vital Signs: 09/13/24 12:02 09/13/24 12:28 09/13/24 13:02 Temperature 98 F Temperature Source Temporal Pulse Rate 85 79 Respiratory Rate 26 H 19 H 22 H Blood Pressure 130/78 H 102/60 100/60 Blood Pressure Mean 95 74 73 Pulse Ox 93 95 98 Oxygen Delivery Method Room Air Room Air Room Air 09/13/24 14:00 Temperature Temperature Source Pulse Rate 82 Respiratory Rate 14 Blood Pressure 97/60 Blood Pressure Mean 72 Pulse Ox 98 Oxygen Delivery Method Room Air Positive well nourished and well developed General Appearance ED: well developed and NAD HEENT Reports normocephalic, head/scalp atraumatic and moist mucous membranes HEENT Narrative: There are abrasions to the right side of the tongue. Eyes PERRL and EOMs intact bilaterally Neck no lymphadenopathy, supple and no JVD Resp normal respiratory effort and clear to auscultation bilaterally Cardio regular rate, regular rhythm and no murmurs GI normal to inspection, nondistended, normoactive bowel sounds and non-tender Palpation: soft Back/Spine no CVA tenderness and normal ROM Extremity normal to inspection General Extremety ED: Negative for edema General Extremity: Negative for edema Neuro Neuro Narrative: Patient moves all extremities. I can get him to open his eyes and stick out his tongue but only briefly. Psych mental status grossly normal Mood & Affect: Negative for depressed or tearful Skin no rashes or lesions noted and no wounds MDM MDM MDM Narrative Medical decision making narrative: Differential diagnosis includes but not limited to but not limited to epileptic seizure status epilepticus medication noncompliance Apparently after a left the room the patient began crying stating that his head hurt. We administered a dose of Toradol. White count is elevated at 24.1 hemoglobin 14.4 platelet count of 340. CO2 is 13 anion gap is 20 which could be consistent with seizure. Alcohol level is negligible glucose of 150. Seizure precautions were instituted. Patient will be observed. Urinalysis and urine drug screen are currently pending. He is a known cannabis user. We will continue observe/monitor the patient. Care of the patient will be turned over to the oncoming physician Dr. Flynn for final check of labs of final disposition. History & Record Review Discussion w/independent historian: Patient and Significant other Lab Data Attestation: I reviewed the patient's lab results. Labs: Laboratory Results - last 24 hr 09/13/24 09/13/24 12:05 14:10 WBC 24.1 H RBC 4.63 Hgb 14.4 Hct 42.3 MCV 91.4 MCH 31.1 MCHC 34.0 RDW Std Deviation 40.4 RDW Coeff of Zach 12.0 Plt Count 340 MPV 8.7 Immature Gran % (Auto) 0.900 Neut % (Auto) 79.6 H Lymph % (Auto) 13.4 L [place] % (Auto) 4.2 Eos % (Auto) 1.5 Baso % (Auto) 0.4 Absolute Neuts (auto) 19.1 H Absolute Lymphs (auto) 3.22 Nucleated RBC % 0 Sodium 133 L Potassium 3.3 L Chloride 100 Carbon Dioxide 13.0 L Anion Gap 20 H BUN 13 Creatinine 1.34 H Estim Creat Clear Calc 87.28 Est GFR (MDRD) Af Amer 78 Est GFR (MDRD) Non-Af 65 BUN/Creatinine Ratio 9.7 L Glucose 150 H Calcium 8.8 Total Bilirubin 0.40 Direct Bilirubin 0.12 AST 27 ALT 32 Alkaline Phosphatase 49 Total Protein 8.0 Albumin 4.4 Globulin 3.6 Ur Drug Screen Comment Ethyl Alcohol < 3.0 Discharge Plan Triage Chief Complaint: Seizure ED Provider: Rashaun Christianson Dx/Rx/DC Orders Prescriptions: No Action sertraline 100 mg tablet 150 mg PO DAILY oxcarbazepine 300 mg tablet 600 mg PO BID Nayzilam 5 mg/spray (0.1 mL) spray,non-aerosol INTRANASAL Patient Comments: INSTILL 1 SPRAY IN THE NOSE NEEDED FOR SEIZURES LASTING LONGER 3 MINUTES. MAY REPEAT DOSE IN ALTERNATE NOSTRIL AFTER 10 MINUTES BASED ON RESPONSE AND TOLERABILITY. Primary Care Provider: Jesus Culver Referrals: Jesus Culver MD [Primary Care Provider] - Print Language: Kiswahili
[2024-09-13 12:40] LABS: Absolute Lymphocyte Count 3.22 X10^3/uL (0.83-4.51); Absolute Neutrophil Count 19.1 X10^3/uL (2.0-7.7); Basophil% 0.4 % (0-1); Eosinophil# 0.37 X10^3/uL; Eosinophils% 1.5 % (0-5); Hematocrit 42.3 % (40-54); Hemoglobin 14.4 g/dL (13.0-16.5); Lymphocyte # 3.22 X10^3/ul (0.83-4.51); Lymphocyte % 13.4 % (19-41); Mean Corpuscular Hgb 31.1 pg (27.0-32.0); Mean Corpuscular Volume 91.4 fL (80-94); Mean Platelet Vol. 8.7 fl (6.2-12.0); Monocyte# 1.02 X10^3/uL; Monocyte% 4.2 % (0-10); NRBC Flagged by Analyzer 0 % (0-5); Neutrophil # 19.14 X10^3/uL (2.7-7.7); Neutrophil % 79.6 % (47-70); Platelet Count 340 K/mm3 (150-450); RBC Distribution Width SD 40.4 fl (35.1-43.9); Red Blood Count 4.63 M/mm3 (4.6-6.2); White Blood Count 24.1 K/mm3 (4.4-11.0)
--- NOTE | 2024-09-13 12:45 | ED.RN ---
PT WHIMPERING STATES MY HEAD HURTS. PROVIDER AWARE.
[2024-09-13] MEDS: Ketorolac 15 MG/ML Vial IV (12:49)
[2024-09-13 13:02] VITALS: BP 100/60; RESP 22; O2SAT 98
[2024-09-13 13:02] LABS: Alcohol, Blood (Medical)-Serum < 3.0 mg/dL
[2024-09-13 13:05] LABS: AST(SGOT) 27 U/L (15-37); Alanine Aminotransfer ALT/SGPT 32 U/L (16-61); Albumin, Serum 4.4 g/dL (3.2-5.0); Alkaline Phosphatase 49 U/L (45-117); Anion Gap 20 (5-15); BUN 13 mg/dL (7-18); BUN/Creat Ratio 9.7 RATIO (10-20); Bilirubin, Direct 0.12 mg/dL (0.00-0.30); Calcium,Total 8.8 mg/dL (8.5-10.1); Chloride 100 mmol/L (98-107); Creatinine, Serum 1.34 mg/dL (0.70-1.30); EST Glomerular Filtration Rate 65 mL/min (>60); Est Glom Filt Rate - Afr Amer 78 mL/min (>60); Estimated Creatinine Clearance 87.28 ml/min; Globulin 3.6 g/dL (2.2-4.2); Glucose 150 mg/dL (74-106); Potassium 3.3 mmol/L (3.5-5.1); Sodium Level 133 mmol/L (136-145)
[2024-09-13 14:00] VITALS: BP 97/60; PULSE 82; RESP 14; O2SAT 98
[2024-09-13 14:16] LABS: Bacteria 0 SEEN /hpf (None Seen); Mucous, Urine 0 SEEN /hpf (<or=2+); Red Blood Cells-Urine 0 SEEN /hpf (0-5); Squamous Epithelial Cells - UA 0 SEEN /hpf (0-5); White Blood Cells 0 SEEN /hpf (0-5)
[2024-09-13 14:37] LABS: Color, Urine Yellow (Yellow); Glucose, Dipstick Normal (Normal); Ketone-Dipstick 15 mg/dl (Negative); Leukocyte Esterase-Dipstick Negative /ul (Negative); Nitrite-Dipstick Negative (Negative); Occult Blood-Urine 10 /ul (Negative); Protein-Dipstick 30 mg/dl (Negative); Specific Gravity, Urine 1.025 (1.002-1.030); Urine Bilirubin Dipstick Negative (Negative); Urine Clarity Sl. Cloudy (Clear); Urine Urobilinogen Normal (Normal)
[2024-09-13 14:46] LABS: Amorphous Sediment 1+
[2024-09-13 15:00] VITALS: BP 99/49
[2024-09-13 15:04] LABS: Amphetamine Urine VISTA NEGATIVE (<1000 ng/mL); Barbiturate Urine VISTA NEGATIVE (< 200 ng/mL); Benzodiazepine Urine VISTA POSITIVE (< 200 ng/mL); Cocaine Urine VISTA NEGATIVE (< 300 ng/mL); Ecstacy Urine VISTA NEGATIVE (< 500 ng/mL); Methadone Urine VISTA NEGATIVE (< 300 ng/mL); PCP Urine VISTA NEGATIVE (< 25 ng/mL); THC Urine VISTA POSITIVE (< 50 ng/mL); Vista UDS pH Range 5
[2024-09-13] MEDS: Ondansetron 4 MG/2 ML Vial IV (15:23)
[2024-09-13] MEDS: 0.9% Normal Saline (500mL Bag) 500 ML 999 ML IV (15:23)
[2024-09-13 16:05] VITALS: BP 97/69; PULSE 87; RESP 16; TEMP 37; O2SAT 100
== END 2024-09-13 16:06 | disposition home or self-care (01) ==
PROVIDERS: Emergency Medicine; Emergency Provider Emergency Medicine; PCP Family Medicine; Visit Provider Emergency Medicine
DX: G40.909 Epilepsy, unspecified, not intractable, without status epilepticus (principal); R11.0 Nausea; R51.9 Headache, unspecified; F17.290 Nicotine dependence, other tobacco product, uncomplicated; Z79.899 Other long term (current) drug therapy
CPT/HCPCS: 80048; 80076; 80307; 81001; 82077; 85025; 96361; 96374; 96375; 99284; J7040; A4216; J2405